=== PATIENT | female | born 1975 | race Two or more races ===

== ENCOUNTER 2025-06-14 11:04 | Emergency (ER) | payer OTHER ==
[~2025-06-14] VITALS: Ht 152.4 cm; Wt 49.0 kg
[2025-06-14] MEDS ORDERED: SIMVASTATIN20 MG PO (11:19)
[2025-06-14] MEDS ORDERED: ONDANSETRON HCL 4 MG in 0.9 % SODIUM CHLORIDE 50 ML IV ONE (11:45)
[2025-06-14] MEDS ORDERED: FAMOTIDINE/PF 20 MG in 0.9 % SODIUM CHLORIDE 8 ML IV PUSH ONE (11:45)
[2025-06-14] MEDS ORDERED: MORPHINE SULFATE 2 MG/ML SYRINGE IV ONE (11:45)
[2025-06-14] MEDS ORDERED: 0.9 % SODIUM CHLORIDE 1,000 ML IV SCH (11:45)
[2025-06-14] MEDS ORDERED: ONDANSETRON HCL 2 MG/ML VIAL ONE (13:20)
[2025-06-14] MEDS ORDERED: FAMOTIDINE/PF 20 MG/2 ML VIAL ONE (13:21)
[2025-06-14 14:09] LABS: URINE APPEARANCE Clear; URINE BILIRRUBIN Negative (NEGATIVE); URINE BLOOD NHT; URINE COLOR Yellow; URINE GLUCOSE Negative (NEGATIVE); URINE KETONE Trace (NEGATIVE); URINE LEUKOCYTE Negative; URINE NITRATE Negative; URINE PROTEIN Negative (NEGATIVE); URINE UROBILINOGEN 0.2 E.U./dl
[2025-06-14 14:10] LABS: URINE BACTERIA 340.7 uL (0.0-1933); URINE EPITHELIAL CELLS 27.8 uL (0.0-38.8); URINE RBC 37.5 uL (0.0-20.8); URINE WBC 2.6 uL (0.0-23.2)
[2025-06-14 14:11] LABS: URINE CAST 0.29 uL (0.0-1.40)
[2025-06-14 14:17] LABS: BASO % 0.3 % (0.1-1.2); EOS # 0.02 (0.04-0.54); EOS % 0.3 % (0.7-7.0); LYMPH # 1.10 (1.18-3.74); LYMPH % 17.3 % (19.3-53.1); MEAN PLATELET VOLUME 10.10 fl (9.4-12.4); MONO # 0.16 (0.24-0.82); MONO % 2.5 % (4.7-12.5); NEUT # 5.05 (1.56-6.13); NEUT % 79.3 % (34.0-71.1); RED CELL DISTRIBUTION WIDTH 11.3 % (11.6-14.4)
[2025-06-14 14:54] LABS: INR 0.98
[2025-06-14 14:58] LABS: ALT/SGPT 21.0 U/L (12-78); AST/SGOT 15.0 U/L (15-37); BILIRUBIN TOTAL 0.32 mg/dL (0.3-1.2); BUN CREA RATIO 21.0 (7.0-25.0); CREATININE SERUM 0.72 mg/dL (0.55-1.02); GFR 85.4; GLOBULINA 3.2 G/DL (2.4-3.5); GLUCOSE FASTING 97.0 mg/dL (65-100); OSMOLALITY SERUM 280.0 MOSM/KG (275-295)
[2025-06-14] MEDS ORDERED: 8HR ARTHRITIS650 M1 PO (15:40)
[2025-06-14] MEDS ORDERED: NORFLEX100MG PO (15:40)
[2025-06-14] MEDS ORDERED: PEPCID AC20 MG PO (15:40)
== END 2025-06-14 15:52 | disposition home or self-care (01) ==
LOC: ER 11:04
PROVIDERS: General Practice
DX: R10.31 Right lower quadrant pain (principal); Z88.6 Allergy status to analgesic agent